=== PATIENT | male | born 1965 | race Caucasian/White ===

== ENCOUNTER 2017-08-23 16:51 | Emergency (ER) | payer OTHER ==
[~2017-08-23] VITALS: Ht 185.4 cm; Wt 95.5 kg
[~2017-08-23 16:51] MED LIST: NEXIUM 20MG20 MG PO
[2017-08-23 16:52] VITALS: TEMP 98.6
[2017-08-23] MEDS ORDERED: ALLEGRA 60MG TA60 MG PO (16:54)
[2017-08-23 18:40] LABS: BASO % 0.2 % (0.0-2.0); EOS # 0.1 (0.0-0.7); EOS % 1.3 % (0-4.0); GRAN # 5.9 (1.4-6.5); GRAN % 71.5 % (42.2-75.2); HEMATOCRIT 42.4 % (42.0-52.0); HEMOGLOBIN 14.5 g/dl (13.5-18.0); LYMPH # 1.7 (1.2-3.4); LYMPH % 20.1 % (20.0-51.0); MEAN CELL VOLUME 88 fl (80.0-100.0); MEAN CORPUSCULAR HEMOGLOBIN 30 pg (27.0-31.0); MEAN CORPUSCULAR HGB CONC 34 g/dl (33.0-37.0); MEAN PLATELET VOLUME 9.8 fl (7.4-10.4); MONO # 0.5 (0.1-0.6); MONO % 6.5 % (1.7-9.3); PLATELET COUNT 269 K/mm3 (130-400); WHITE BLOOD COUNT 8.2 K/mm3 (4.8-10.8)
[2017-08-23 18:48] LABS: ADJUSTED CALCIUM 8.5 mg/dL (8.4-10.2); BILIRUBIN,TOTAL 0.5 mg/dL (0.0-1.0); CALCIUM 9.3 mg/dL (8.4-10.2); CREATININE, serum 0.95 mg/dL (0.66-1.25); POTASSIUM 4.1 mmol/L (3.4-5.0); TOTAL PROTEIN 7.7 gm/dL (6.4-8.2)
[2017-08-23 20:16] LABS: COLLECTION METHOD CLEAN CATCH
[2017-08-23 20:22] LABS: PH 6 (5-8); SQUAMOUS EPITHELIAL None Seen /hpf; URINE APPEARANCE Clear; URINE BACTERIA None Seen /hpf; URINE BILIRUBIN Negative (NEGATIVE); URINE BLOOD 2+ (NEGATIVE); URINE COLOR Yellow; URINE GLUCOSE Negative (NEGATIVE); URINE KETONE Negative (NEGATIVE); URINE LEUKOCYTE ESTERASE Negative (NEGATIVE); URINE PROTEIN(semi-quant) Negative (NEGATIVE); URINE RBC 0-2 /hpf; URINE UROBILINOGEN Negative (NEGATIVE); URINE WBC 0-2 /hpf
[2017-08-23] MEDS ORDERED: PERCOCET 325 MG1 TA2 PO (20:39)
[2017-08-23 20:49] VITALS: BP 151/87; PULSE 73
== END 2017-08-23 21:04 | disposition home or self-care (01) ==
LOC: COL.ER 16:51
PROVIDERS: Nurse Practitioner
DX: S16.1XXA Strain of muscle, fascia and tendon at neck level, initial encounter (principal); S29.012A Strain of muscle and tendon of back wall of thorax, initial encounter; V49.40XA Driver injured in collision with unspecified motor vehicles in traffic accident, initial encounter; Y93.I9 Activity, other involving external motion
CPT/HCPCS: J1170; J2405

== ENCOUNTER 2021-05-07 15:18 | Outpatient (RCR) | payer OTHER ==
[~2021-05-07 15:18] MED LIST changes: +ALLEGRA 60MG TA60 MG PO; +PERCOCET 325 MG1 TA2 PO
== END 2021-06-15 | disposition home or self-care (01) ==
LOC: WSOH
DX: M25.551 Pain in right hip (principal); Z98.890 Other specified postprocedural states; Y99.0 Civilian activity done for income or pay
CPT/HCPCS: G0283-GP